=== PATIENT | male | born 1985 | race Caucasian/White ===

== ENCOUNTER 2018-10-14 05:37 | Inpatient (IN) ==
[~2018-10-14 05:37] MED LIST: LIDOCAINE W/ SODIUM BICARB 0.5 ML SYR ONE; Lactated Ringers 1,000 ML PRIMARY IV ONE
[2018-10-14] MEDS ORDERED: Sodium Chloride 0.9% 250 ML ONE (05:42)
[2018-10-14] MEDS ORDERED: Vancomycin Inj 1gm vial ONE ×2 (05:42→07:19)
[2018-10-14] MEDS ORDERED: ceFAZolin Inj 2gm (Premix) 2 GM/50 ML BAG IV ONE ×2 (05:42→06:00)
[2018-10-14] MEDS ORDERED: Lactated Ringers 1,000 ML PRIMARY IV ONE ×2 (06:00→15:58)
[2018-10-14] MEDS ORDERED: LIDOCAINE W/ SODIUM BICARB 0.5 ML SYR SUBD ONE (06:00)
[2018-10-14] MEDS ORDERED: Nasal Sanitizer POPSWAB ampule 3 AMP (Nozin) PREOP DOSE ENOS SCH (06:00)
[2018-10-14] MEDS ORDERED: SCOPOLAMINE HYDROBROMIDE 1.5 MG - 1 EACH PATCH TRANSDERM ONE (06:45)
[2018-10-14] MEDS ORDERED: ONDANSETRON 4 MG/2 ML VIAL ONE (06:45)
[2018-10-14] MEDS ORDERED: DEXAMETHASONE PF 10 MG/1 ML VIAL ONE (06:46)
[2018-10-14] MEDS ORDERED: OXYMETAZOLINE 0.05% 15 ML NASAL SPRAY ONE (06:58)
[2018-10-14] MEDS ORDERED: fentaNYL Inj 250 MCG/5 ML VIAL ONE ×2 (07:13→10:07)
[2018-10-14] MEDS ORDERED: KETAMINE HCL 100 MG/2 ML SYRINGE IV ONE ×2 (07:13→09:42)
[2018-10-14] MEDS ORDERED: REMIFENTANIL 1 MG/1 ML IV ONE ×5 (07:13→13:56)
[2018-10-14] MEDS ORDERED: MIDAZOLAM 5 MG/1 ML ONE (07:13)
[2018-10-14] MEDS ORDERED: REMIFENTANIL HCL 2 MG VIAL IV ONE ×6 (07:14→15:01)
[2018-10-14] MEDS ORDERED: Gentamicin Inj 40 MG/ML VIAL ONE (07:18)
[2018-10-14] MEDS ORDERED: Propofol 1,000 MG/100 ML VIAL IV ONE ×5 (07:19→13:58)
[2018-10-14] MEDS ORDERED: BACITRACIN 50,000 UNIT VIAL IRRIG ONE ×4 (07:20→12:58)
[2018-10-14] MEDS ORDERED: BUPIVACAINE 0.25% W/ EPI - 10 ML VIAL ONE (07:21)
[2018-10-14] MEDS ORDERED: Sodium Chloride 0.9% vial 20 ML ONE (07:21)
[2018-10-14] MEDS ORDERED: PROPOFOL 10 MG/1 ML (200 MG/20 ML) VIAL IV ONE ×3 (07:22→14:46)
[2018-10-14] MEDS ORDERED: LIDOCAINE MPF 2% - 5 ML (20 MG/1 ML) ONE (07:32)
[2018-10-14] MEDS ORDERED: LIDOCAINE HCL 2 % 10 ML JELLY URO-JECT TOPICAL ONE ×2 (07:46→08:47)
[2018-10-14] MEDS ORDERED: ALBUTEROL SULFATE 8.5 GM HFA INHALER INH ONE (08:14)
[2018-10-14] MEDS ORDERED: BUPivacaine Liposome/PF (Exparel) Inj 20ml vial INFIL ONE (09:46)
[2018-10-14] MEDS ORDERED: Sodium Chloride 0.9% vial 10 ML ONE ×4 (11:20→12:58)
[2018-10-14] MEDS ORDERED: ceFAZolin 1 GM VIAL ONE (12:34)
[2018-10-14] MEDS ORDERED: BUPivacaine Inj 0.25% PF - 10ml vial ONE (14:28)
[2018-10-14] MEDS ORDERED: HYDROmorphone 2 MG/1 ML ONE ×3 (14:53→16:42)
[2018-10-14] MEDS ORDERED: HYDROmorphone 2 MG/1 ML IVP ONE ×2 (16:00→16:19)
[2018-10-14] MEDS ORDERED: ONDANSETRON 4 MG/2 ML VIAL IVP PRN (16:05)
[2018-10-14] MEDS ORDERED: Prochlorperazine Edisylate Inj 10mg/2ml vial IVP PRN ×2 (16:05→17:03)
[2018-10-14] MEDS ORDERED: LIDOCAINE W/ SODIUM BICARB 0.5 ML SYR SUBD PRN (16:05)
[2018-10-14] MEDS ORDERED: DIAZEPAM 10 MG/2 ML (5 MG/1 ML) CARPUJECT IVP PRN (16:07)
--- NOTE | 2018-10-14 16:10 | GEN.OPNOTE ---
Operative Note Surgery Date: 10/14/18 Preoperative Diagnosis: 1. Chronic low back pain. 2. Lumbar degenerative disc disease L2-3 and L3-4. 3. Adjacent level facet arthropathy L3-4. 4. Status post L3 vertebral body fracture with subsequent kyphoplasty. 5. Status post L4-S1 fusion 2013. 6. Status post SI join fusion 2013. 7. Status post Chiari decompression in 2012. Postoperative Diagnosis: 1. Chronic low back pain. 2. Lumbar degenerative disc disease L2-3 and L3-4. 3. Adjacent level facet arthropathy L3-4. 4. Left L3-4 lateral recess stenosis. 5. Status post L3 vertebral body fracture with subsequent kyphoplasty. 6. Status post L4-S1 fusion 2013. 7. Status post SI join fusion 2013. 8. Status post Chiari decompression in 2012. Procedure: 1.) L4-S1 hardware removal (removal of all set screws and rods, crosslink, and S1 pedicle screws. (CPT code: 27261). 2.) Left L3-4 hemilaminotomy, medial facetectomy, foraminotomy for decompression of lateral recess stenosis resulting from bony arthopathy/hypertrophy and ligamentous hypertrophy. (CPT code: 89203). 3.) Arthrodesis, combined posterolateral and posterior interbody technique, L2-3. (CPT code: 03331). 4.) Arthrodesis, combined posterolateral and posterior interbody technique, L3-4. (CPT code: 83419). 5.) Insertion of a 10 mm x11 mm x [address] titanium lumbar interbody cage filled in the center with DBM putty (allograft) into the L2-3 interspace. (CPT code: 21833). 6.) Insertion of a 11 mm x 11 mm x [address] titanium lumbar interbody cage filled in the center with DBM putty (allograft) into the L3-4 interspace. (CPT code: 56010). 7.) Redo p osterolateral arthrodesis, L4-5. (CPT code: 79551). 8.) Posterior segmental instrumentation, L2-L5 using [employer] Alfred 3 pedicle screw and abdifatah system (reusing Aesculap L4 and L5 pedicle screws). (CPT code: 58933). 9.) Use of autograft, harvested from the same incision, cleaned of soft tissue and morselized for interbody and posterolateral fusion. (CPT code: 40977). 10.) Use of 20 cc My Vitoss Bimodal synthetic bone product (allograft), 30 cc [place] BIO DBM Putty Plus cancellous (allograft), and 90 cc cancellous chips (allograft) for interbody and posterolateral fusion. (CPT code: 91024). 11.) Use of [employer] computer assisted neuronavigation system for the cannulization of the L2 pedicles bilaterally and the L3 pedicle on the left, for the subsequent placement of the pedicles screws. (CPT code: 58973). 12.) Use of intra- operative fluoroscopy for localization of correct surgical levels, for final confirmation of the placement of the intervertebral cages and final confirmation of the placement of posterolateral hardware elements. 13.) Use of intra- operative neuromonitoring including free running EMG's, triggered EMG's, and SSEP's. Surgeon: Winston Naik MD Mechanical Planner: GALEN Serna Anesthesia Provider: Loco Williamson CRNA Anesthesia Type: General Estimated Blood Loss (mL): 600 Fluids: See anesthesia record Pathology: None Indications: Mr. Hilliard is a 33 year old gentleman who is a patient of mine who underwent a suboccipital craniectomy in 2012 and an L4-S1 fusion in 2013. He underwent a right SI joint fusion in [place] in 2014. He had a lumbar kyphoplasty p erformed by Dr. Youssef in 2015 for an L3 compression fracture. Mr. Hilliard presented in my [facility] on 08/09/18. He complained of low back pain radiating into his right buttocks, rating is pain as a 7/10 in intensity. He had an MRI scan of his lumbar spine that demonstrated his L4-S1 fusion as well as a kyphoplasty of the L3 vertebral body. The study demonstrated adjacent level degenerative disc disease and facet arthropathy at the L3-4 level. He underwent bilateral L3-4 facet blocks receiving 5 days of relief from the injections. We discussed referring him for facet rhizotomies but also discussed extending his fusion and he wished to proceed with the surgical procedure. He presents for his surgery today, a L4-S1 hardware removal; L2-3, L3-4 transforaminal lumbar interbody fusion and L2-4 posterolateral instrumented fusion. Findings: 1.) Facet arthropathy and hypertrophy L2-3 and L3-4. 2.) Left L2-3 subligamentous herniated nucleus propulsis. 3.) Left L3-4 lateral recess stenosis. 4.) Solid L4-S1 fusion. Complications: None Operative Summary: Mr. Hilliard was met in the preoperative area. His surgical history and physical was reviewed. We reviewed the procedure to be performed and we were in agreement on the procedure and this matched what was written on the patient's consent form. Any questions Mr. Hilliard or his mother had were answered before Mr. Hilliard was brought back to the operating room suite. Mr. Hilliard was brought back to the operating room suite and put under general anesthesia and intubated by the anesthesia staff. He had a Singh catheter placed in his bladder for the procedure. He had pneumatic compression hose placed on his lower legs bilaterally. Mr. Hilliard was carefully rolled over onto the Johny surgical table with his arms gently positioned upwards with his shoulders abducted less than 90. His arms were well-padded with foam padding on top of the padding the surgical armboards. The region of his chest and axilla was checked bilaterally to make sure that there were no pressure points over the region of the brachial plexus bilaterally. His nipples were checked be below the chest pad of the Johny table no pressure points. All bony prominences were well padded. His Singh catheter was checked be free from kinks. His pneumatic compression hose was attached and pneumatic compression device. The C-arm fluoroscopy unit was used to help localize the skin incision needed for the approach to the intended surgical levels. The intended skin incision was marked with a skin marker was several crosshatches incorporating his previous surgical incision into the new intended incision. Mr. Hilliard was prepped and draped in the usual and standard fashion. He was given 2 g of Ancef and a gram of vancomycin IV for perioperative antibiosis. He was given 10 mg of Decadron IV. A standard surgical timeout was performed identifying the correct patient, the correct procedure, and the correct equipment being available for the procedure. The intended skin incision was injected subcutaneously with quarter percent Marcaine with 1 in 200,000 epinephrine. 20 mL of local anesthetic was used. The skin incision was then incised with a 10 blade scalpel and all dermal and superficial bleeding points being controlled bipolar cautery. The dissection was continued through these copious subcutaneous tissue down to the lumbar fascia. The lowest spinous process above his previous surgical area was palpated and felt to likely be the L3 spinous process and subperiosteal dissection was performed down the spinous process and out over the lamina bilaterally. A Artesian instrument was placed over what was believed to be the level of the L3 pedicles and this was confirmed with lateral fluoroscopy. Continued subperiosteal dissection was performed in the rostral aspect of the surgical dissection and the normal tissue planes exposing the inferior aspect of the L1 lamina the L2 lamina and the L3 lamina and the L1-2, L2-3, and L3-4 facet joints bilaterally and the dissection was taken out laterally over the L2 and L3 transverse processes bilaterally. More caudally and the scar tissue from the patient's previous surgery the dissection was taken laterally earlier as the dissection proceeded ventrally to avoid entering into the previously decompressed spinal canal at the previous surgical levels. This identified the L4-S1 hardware elements bilaterally as well as cross-link between the L4 and L5 pedicle screws. Soft tissue was cleaned over the posterior aspect of the spine in the rostral aspect of the surgical dissection the normal tissue planes using a large straight curette and a large Leksell rongeur. The hardware from the patient's previous L4 to S1 instrumented fusion was dissected out with Bovie cautery as well as with the large Leksell rongeur. The cross-link was removed between the rods between the L4 and L5 pedicle screws. The set screws of the L4, L5, and S1 pedicle screws were then removed from the Aesculap instrumentation construct. All of the pedicle screws now independent were gently tugged on with a large Leksell rongeur and there was noted to be no movement between the L4-5 and L5-S1 levels. The S1 pedicle screws were subsequently removed. The L4 and L5 pedicle screws however left in place to provide two points of the purchase below the new intended extension of fusion. The soft tissue underneath and lateral to where the rods had been was then dissected with Bovie cautery and a large Leksell rongeur. There was bone product encountered from the patient's previous surgery that had solidified into a solid gel but not into solid bone. This product was all completely removed. With this product removed however the bone underneath was completely dissected out and there was evidence of solid fusion across the L4-5 and L5-S1 facet joints bilaterally. The L4 and L5 transverse processes were dissected out bilaterally. Extensive decortication was then performed of the L2 L3 L4 and L5 transverse processes bilaterally as well as the lateral aspect of the L1-2 facet joint and the lateral and posterior aspects of the L2-3 facet joint after the posterior aspect of this quite hypertrophied facet joint was removed with a large Leksell rongeur. The lateral and posterior aspect of the L3-4 facet joint was decorticated bilaterally. The L4 and L5 transverse processes were decorticated bilaterally as well as the L4-5 posterior lateral fusion mass bilaterally. All decortication was performed with the Affine Brett high-speed drill with a matchstick bit. The bone dust created was collected and saved to be used as autograft during the fusion portion of the procedure. The [employer] neuro navigation reference arc was securely attached to the L1 spinous process and a spin was performed with the Pumant 3-D fluoroscopy unit. The [employer] neuro navigation pedicle finder was then used to cannulate the L2 pedicles bilaterally and the L3 pedicle on the left. A 8 mm diameter Jamshidi needle was inserted into the L2 pedicle on the left in 20 mL of vertebral body bone marrow was collected and saved to saturate the 20 mL of [employer] Vitoss synthetic bone product intended for the posterior lateral fusion. The internal aspect of the pedicles were palpated with a small ball-tip instrument. The pedicle screws were then all tapped with the My Daphney 3 4.5 mm pedicle tap. The internal aspects of the pedicles were again palpated with a small ball-tip instrument. The pedicle screws were then placed. 5.5 x 55 mm pedicle screws were placed into the L2 pedicles bilaterally and a 5.5 x 40 mm pedicle screw was placed into the L3 pedicle on the left. The pedicle screws all obtained good purchase in the pedicle and vertebral body bone. The pedicle screws were then interrogated with triggered EMGs and all demonstrated sufficiently high impedance indicating that they were not in close proximity to nerve structures. Another spin was performed with the 3-D fluoroscopy unit providing further confirmation of the pedicle screws were indeed contained within the confines of the pedicles at each level bilaterally and either bicortical or nearly bicortical as intended. A hemilaminotomy, medial facetectomy, and foraminotomy was then performed at the L3-4 level on the left. Bony arthropathy and ligamentous hypertrophy was found to be producing significant lateral recess stenosis on the left at L3-4 which was completely decompressed using the high-speed drill with a matchstick bit as well as with various size Kerrison punches. This stenosis was not anticipated based on the preoperative images. A hemilaminotomy, medial facetectomy, and foraminotomy was performed at the L2-3 level on the left to expose the disc space for the intended interbody fusion at this level. A Wadsworth 4 instrument was used to carefully dissect the soft tissue adjacent to the takeoff of the L3 nerve root at the L2-3 level and the L4 nerve root at the L3-4 level. This allowed identification of the L2-3 and L3-4 disc space proper. A Angelina'Aristides nerve root retractor was used to retract the thecal sac and transversing nerve roots at both levels. Epidural veins over the disc spaces were coagulated with bipolar cautery and cut with microscissors. At the L2-3 level there was noted to be a prominent subligamentous disc herniation. The L2- 3 and L3-4 disc spaces were incised with a 15 blade scalpel and disc material was removed with a pituitary rongeur. Additional disc and cartilaginous endplate was loosened in each level using the K2 disc space monty in 1 mm increments starting with a 7 mm disc space shaver both levels advancing to a 9 mm disc space shaver at the L2-3 level and a 10 mm disc space shaver at the L3-4 level. The disc material loosened was removed with a pituitary rongeur. The large Danna down-biting curet was then used to loosen disc laterally in both the L2-3 and L3-4 disc spaces with the disc fragments removed with a pituitary rongeur. The large Danna down-biting curet was then used to extensively decorticate the L2 and L3 endplates in the L2-3 interspace and the L3 and L4 endplates in the L3-4 interspace. All fingers spaces were irrigated with bacitracin irrigation. Approximately 3 mL of [place] BIO DBM Putty Plus cancellus (allograft) was placed into each of the interspaces and moved anteriorly with a bone tamp. Each interspace was sized for the appropriate size lumbar interbody cage. A 10 mm x 11 mm x [address] titanium lumbar interbody cage was selected for the L2-3 level. The cage was filled in the center with [place] BIO DBM Putty Plus cancellus (allograft) and inserted into the L2-3 interspace with the supervisor tree fruit and nut farming. The cage was gently countersunk with a bone tamp and mallet. The cage obtained good purchase between the L2 and L3 endplates. The final position of the cage was confirmed with lateral fluoroscopy. A 11 mm x 11 mm x [address] titanium lumbar interbody cage was selected for the L3-4 level. The cage was filled in the center with My BIO DBM Putty Plus cancellus (allograft) and inserted into the L3-4 interspace with the supervisor tree fruit and nut farming. The cage was gently countersunk with a bone tamp and mallet. The cage obtained good purchase between the L3 and L4 endplates. The final position of the cage was confirmed with lateral fluoroscopy. Attention was turned back to the instrumentation portion of the procedure. A template was used to measure the length the rods needed to span from the L2 pedicle screws to the L5 pedicle screws bilaterally. [place] Alfred 35.5 mm rods were cut to the appropriate length and then bent into the appropriate lumbar lordosis. The rods were then placed into the tulips of the pedicle screws and then My set screws were placed over the rods in the tulips of the L2 pedicle screws bilaterally and the L3 pedicle screw on the left, and Aesculap set screws were placed over the rods in the tulips of the L4 and L5 Aesculap pedicle screws. The set screws were first tightened down hand tight and then the My set screws were tightened down to their final tightness using the torque counter torque device while the Aesculap set screws were tightened down squeaky tight. The surgical site was irrigated with hydrogen peroxide. The surgical site was then pulse lavaged with 3 L of vancomycin/bacitracin/gentamicin solution. The paraspinous musculature was retracted and 10 mL of My corwin Wilson bimodal synthetic bone product soaked in 10 mL of vertebral body bone marrow was then placed medial to the hardware construct on the right and lateral to the hardware construct on the left from the L2 transverse process to the L5 transverse process. 90 mL of cancellus bone chips was split with half of this product being placed both medial and lateral to the hardware construct on the right from the L2 transverse process to the L5 transverse process and placed lateral to the hardware construct on the left from the L2 transverse process to the L5 transverse process. The remaining approximately 23 mL of My BIO DBM Putty Plus cancellous was then split with this product being placed medial and lateral to the hardware construct on the right and lateral to the hardware construct on the left to provide extra bone product for fusion and to hold bone chips in place. The hemilaminotomy/medial facetectomy sites on the left at L2-3 and L3-4-were inspected for any bone chips. Any identified were removed. The hemilaminotomy/medial facetectomy sites were irrigated with a small amount of irrigant which was subsequently removed with suction. FloSeal hemostatic agent was placed over all exposed dural elements. Pieces of Gelfoam were placed over the exposed portions of the spinal canal. A medium Hemovac drain was placed into the surgical site. The closure portion of the procedure was begun. The deep scar tissue and the lower half of the bustillo rgical dissection was closed with #1 Vicryl suture. The lumbar fascia was then closed tightly throughout the length of the incision with #1 Vicryl suture in a interrupted fashion. The surgical site was again irrigated with bacitracin irrigation. The deep subcutaneous tissue and fascia was reapproximated with 2-0 Vicryl suture in a interrupted fashion. Exoperel was then injected all around the surgical site in the subcutaneous tissue. The dermis and superficial subcutaneous tissue was reapproximated with 2-0 Vicryl suture in an inverted interrupted fashion. The Ioban drape was pulled back from the skin edges. Final layer closure was performed with surgical stainless steel rogelio. The incision was cleansed with bacitracin soaked sponge and dried with a sterile dry sponge. The incision was then dressed. The surgical drain was secured with suture. The drain site was dressed. All surgical drapes removed from Mr. Hilliard. He was carefully rolled over onto the PACU stretcher. He was awoken and a by the anesthesia staff. He was taken the recovery room stable condition. All surgical counts were reported as correct by the scrub and circulating personnel. A physician's administrative office assistant, Mrs. Jeniffer Martinez PA-C, assisted with the procedure including the exposure and closure portions of the procedure. She provided irrigation and suctioning throughout the procedure. She skillfully and carefully retracted the nerve structures during the more critical portions of the procedure such as the discectomy and intervertebral cage placement portions of the procedure.
[2018-10-14] MEDS ORDERED: Lactated Ringers 1,000 ML PRIMARY IV SCH (16:15)
--- NOTE | 2018-10-14 16:15 | CRNA.PROGR ---
Anesthesia Time - Procedure/Recovery Time Start Date: 10/14/18 End Date: 10/14/18 Anesthesia : Time In: 07:29 Anesthesia : Time Out: 16:14 Anesthesia : Total Time: 525 - Total Anesthesia Time Total Anesthesia Time (minutes): 525 - Other Weight: 107.501 kg Height: 5 ft 10 in Body Mass Index (BMI): 34.0 Physical Status: P2 Anesthesia Type: General Anesthesia : ET (TIVA)
--- NOTE | 2018-10-14 16:16 | CRNA.PROGR ---
Anesthesia Recovery Phase I - Post Anesthesia Evaluation Patient's Condition on Arrival in Phase I: Stable Pain Level: 9 (treated with dilaudid and valium with great results)
[2018-10-14] MEDS: HYDROmorphone 2 MG/1 ML IVP PRN ×2 (16:36→16:38)
[2018-10-14] MEDS ORDERED: DIAZEPAM 10 MG/2 ML (5 MG/1 ML) CARPUJECT IVP ONE (16:43)
[2018-10-14] MEDS ORDERED: PROMETHAZINE 25 MG/1 ML VIAL IM PRN (17:03)
[2018-10-14] MEDS ORDERED: oxyCODONE-ACETAMINOPHEN 5-325 TAB PO PRN (17:03)
[2018-10-14] MEDS ORDERED: Ondansetron ODT Tab 4 MG TAB PO PRN (17:03)
[2018-10-14] MEDS ORDERED: MORPHINE SULFATE 2 MG/1 ML IVP PRN (17:03)
[2018-10-14] MEDS ORDERED: Fleet Enema 133ml RECTAL PRN (17:03)
[2018-10-14] MEDS ORDERED: Vancomycin-PHA to Dose IV SCH (17:03)
[2018-10-14] MEDS ORDERED: MAGNESIUM CITRATE 296 ML SOLUTION PO PRN (17:03)
[2018-10-14] MEDS ORDERED: oxyCODONE/APAP 7.5/325 Tab 1 TAB TAB PO PRN (17:03)
[2018-10-14] MEDS: ceFAZolin Inj 1 GM in Sodium Chloride 0.9% 100 ML IV SCH (17:40)
[2018-10-14] MEDS: oxyCODONE/APAP 10/325 Tab 1 EACH TAB PO PRN ×2 (17:41→21:12)
--- NOTE | 2018-10-14 17:45 | NEURO.PROG ---
Subjective Post Op Day: 0 Pain Management: PO Singh Catheter: Yes Diet: Controlled Carbohydrate Ambulating: No Additional Details: Awake and alert in floor room. Back "sore". Denies leg symptoms. Moving all extremities. Good knee flexion/dorsiflexion/plantarflexion bilaterally. PLAN; 1.) Continue post-operative antibiotics. 2.) Continue post-operative pain control. 3.) Advance diet. 4.) Mobilize. Objective : Data - Vital Signs Vital Signs and I&O: Vital Signs - Last Taken Temperature 96.6 F L 10/14/18 17:16 Pulse Rate 53 L 10/14/18 17:16 Respiratory Rate 12 10/14/18 17:16 Blood Pressure 123/76 10/14/18 07:07 Pulse Ox 98 10/14/18 17:16 Intake and Output (24hr x 4 totals) 10/12/18 10/13/18 10/14/18 10/15/18 05:59 05:59 05:59 05:59 Intake Total 2900 / 2900 Output Total 3600 / 3600 Balance -700 / -700
[2018-10-14] MEDS: ONDANSETRON 4 MG/2 ML VIAL IVP PRN (19:50)
[2018-10-14] MEDS: DIAZEPAM 5 MG TABLET PO PRN (22:43)
[2018-10-15] MEDS: ceFAZolin Inj 1 GM in Sodium Chloride 0.9% 100 ML IV SCH (01:25)
[2018-10-15] MEDS: oxyCODONE/APAP 10/325 Tab 1 EACH TAB PO PRN ×6 (01:37→21:08)
[2018-10-15] MEDS: DIAZEPAM 5 MG TABLET PO PRN ×3 (04:46→17:02)
[2018-10-15 05:19] LABS: BASOPHILS # (AUTO) 0.01 10*3/UL; BASOPHILS % (AUTO) 0.1 % (0-1); EOSINOPHILS # (AUTO) 0 10*3/UL; EOSINOPHILS % (AUTO) 0 % (0-8); Hematocrit [HCT] 34.9 % (42.0-52.0); Hemoglobin [HGB] 11.8 g/dL (14.0-18.0); LYMPHOCYTES # (AUTO) 1.35 10*3/uL; MEAN CORPUSCULAR HEMOGLOBIN 31.3 PG (27-31); MEAN CORPUSCULAR HGB CONC 33.8 g/dL (33-37); MEAN CORPUSCULAR VOLUME 92.6 FL (80-90); MEAN PLATELET VOLUME 10.7 FL (7.4-12.2); MONOCYTES # (AUTO) 1.06 10*3/UL (0.3-0.8); MONOCYTES % (AUTO) 9.7 % (5-15); NEUTROPHILS # (AUTO) 8.52 10*3/UL; NEUTROPHILS % (AUTO) 77.7 % (50-80); RED BLOOD COUNT 3.77 10^6/uL (4.70-6.10)
[2018-10-15 05:36] LABS: BLOOD UREA NITROGEN 10 mg/dL (7-22); BUN/CREATININE RATIO 16.66 (6-20)
[2018-10-15 05:39] LABS: PLATELET MORPHOLOGY COMMENT NORMAL MORPHOLOGY (NORM); RBC MORPHOLOGY COMMENT NORMAL MORPHOLOGY (NORM); WBC MORPHOLOGY COMMENT NORMAL MORPHOLOGY (NORM)
--- NOTE | 2018-10-15 06:08 | NEURO.PROG ---
Subjective Post Op Day: 1 Pain Management: PO Singh Catheter: No Diet: Constant Carbohydrate Ambulating: Yes Additional Details: Awake and alert. Following commands. Moving all extremities well. Drain output 145/190. PLAN: 1.) Continue post-operative antibiotics. 2.) Continue post-operative pain control. 3.) Continue to mobilize. Objective : Data - Labs CBC and BMP: 10/15/18 04:50 10/15/18 04:50 - Vital Signs Vital Signs and I&O: Vital Signs - Last Taken Temperature 98.3 F 10/15/18 05:00 Pulse Rate 74 10/15/18 05:00 Respiratory Rate 16 10/15/18 05:00 Blood Pressure 122/70 10/15/18 05:00 Pulse Ox 99 10/15/18 05:04 Intake and Output (24hr x 4 totals) 10/13/18 10/14/18 10/15/18 10/16/18 05:59 05:59 05:59 05:59 Intake Total 3800 / 3800 Output Total 4785 / 4785 Balance -985 / -985
[2018-10-15] MEDS: OMEPRAZOLE 40 MG CAPSULE PO SCH (06:42)
[2018-10-15] MEDS: DOCUSATE 100 MG CAPSULE PO PRN (06:42)
[2018-10-15] MEDS: PANTOPRAZOLE 40 MG TABLET PO SCH (06:52)
[2018-10-15] MEDS: CALCIUM CARBONATE 500 MG (TUMS) CHEWABLE TABLET PO SCH (09:03)
[2018-10-15] MEDS: Multivitamin Tab 1 TAB PO SCH (09:03)
[2018-10-15] MEDS: CHOLECALCIFEROL 1000 IU TABLET PO SCH (09:03)
[2018-10-15] MEDS: CYANOCOBALAMIN (VITAMIN B-12) 1,000 MCG TABLET.ER PO SCH (09:03)
[2018-10-15] MEDS: MAGNESIUM 400 MG/5 ML - 30 ML (MILK OF MAGNESIA) PO PRN (12:55)
--- NOTE | 2018-10-15 14:30 | PTI REPORT ---
Thank you for the referral of Mateo Hilliard. He was seen on 10/15/18 for an inpatient evaluation status post lumbar fusion. SUBJECTIVE: The patient is a 33-year-old male who underwent a lumbar fusion yesterday. The patient states that he has had 10 surgeries in the last several years and he pretty much understands what his expectations are as an inpatient and what is coming next. The patient is very pleasant and easy to work with. The patient does live with his at home. OT will be helping him with adaptive equipment this morning. PAST MEDICAL HISTORY: Past medical history can be found in the patient's medical record. OBJECTIVE FINDINGS: General observations: The patient was alert and oriented x3. Bed mobility: The patient was able to come from supine to side lying to sitting independently. He was able to complete log rolling and understood his precautions. Transfers: The patient was able to transfer from sit to stand independently and understood his precautions. Ambulation: The patient was able to ambulate with use of a walker up to 1,000 feet independently. He was able to ascend and descend 12 stairs with stand by assist of one due to his pain medications. ASSESSMENT: The overall plan on the nursing floor is to keep the patient at least through tomorrow. He did have his new brace and understood how to use it and felt good with it on. The patient has a good prognosis. Problem List: Decreased functional mobility Increased pain Short-Term Goals: To be met by discharge from inpatient: Patient will be able to transfer from bed to stand independently and safely. Patient will be able to ambulate 300 feet independently without an assistive device. Patient will be able to ascend and descend one flight of stairs independently and safely. Long-Term Goals: To be met following discharge from inpatient: Patient will return home, independent with all ADLs and functional transfers. TREATMENT PLAN: Patient will be seen B.I.D during the week and one time per day over the weekend as an inpatient to address the above goals and objectives. INITIAL TREATMENT: Treatment today consisted of the initial evaluation only. GI
--- NOTE | 2018-10-15 14:39 | OTI REPORT ---
Thank you for the referral of Mateo Hilliard. He was seen on 10/15/18 for an occupational therapy inpatient evaluation status post lumbar fusion. SUBJECTIVE: The patient is a 33-year-old male who reports quite a medical history with his back, Chiari malformation, stomach surgeries, and leg fractures on the left side. The patient reports he has been on disability for a few years now. He has had back pain for quite a few years as well. He was independent with dressing himself and doing simple ADLs. He does have a commode in his apartment. He has five stairs leading up to his apartment. He does have a shower chair. PAST MEDICAL HISTORY: Past medical history can be found in the patient's medical record. OBJECTIVE FINDINGS: General observations: The patient was educated in his back precautions. Activities of daily living: Prior to this admission the patient had not used adaptive devices and had his help him most of the time. He states he would like to be more independent as possible. Today he was educated in the use of a medicaid billing specialist, sock aide, bath sponge, and long handled shoe horn, which he states will all be beneficial for him at home. He needed min assist with use of the sock aide. He was independent with the medicaid billing specialist. The patient was also issued a high rise toilet seat as he does have a low toilet at home. Transfers: The patient requires stand by assist for functional transfers. He demonstrated good log rolls. Pain: The patient rates his pain as a 7/10 on the verbal analog scale (0=no pain, 10=worst pain). His pain levels without pain medications continue to increase, but with medication they are tolerable. ASSESSMENT: The patient would benefit from at least one more session to go over adaptive devices and adaptive equipment. He would benefit from therapy to improve his ability to complete lower extremity dressing. Short-Term Goals: To be met by discharge from inpatient: Patient will be able to dress lower extremities with medicaid billing specialist and sock aide independently. Patient will be able to complete all functional transfers independently and safely. Patient will demonstrate independence with all back precautions while completing functional transfers and ADLs. Long-Term Goals: To be met following discharge from inpatient: Patient will demonstrate modified independence with adaptive devices. TREATMENT PLAN: Patient will be seen one more time as an inpatient to address adaptive devices and equipment. INITIAL TREATMENT: Treatment today consisted of the initial evaluation followed by education and instruction on adaptive devices. GI
--- NOTE | 2018-10-15 16:45 | PT.PROG ---
Progress Note Progress Note: S. Patient stated that he is having some pain this afternoon, however agreed to go for a walk. O. Patient ambulated 200 feet around the nurses station and back to his room where he was left in his chair with his call light. A. Patient tolerated ambulation well and has met all goals at this time. P. Continue POC.
[2018-10-15] MEDS: BISACODYL 5 MG TABLET PO PRN (17:05)
[2018-10-16] MEDS: oxyCODONE/APAP 10/325 Tab 1 EACH TAB PO PRN ×4 (00:51→13:00)
[2018-10-16] MEDS: DOCUSATE 100 MG CAPSULE PO PRN (04:56)
--- NOTE | 2018-10-16 06:14 | NEURO.PROG ---
Subjective Post Op Day: 2 Pain Management: PO Singh Catheter: No Flatus: Yes Diet: Regular Ambulating: Yes Additional Details: Mr Hilliard is awake and alert. He complains only of low back pain, denying peripheral symptoms including the left buttock pain reported postoperatively. He has good strength bilaterally with dorsi and plantar flexion and bilateral leg strength. He ambulated with physical therapy passing all milestones. Vital signs are stable. He is passing flatus but has not had a bowel movement. He is on stool softeners. His incision is dry and intact. He had 190 ml of serosanguinous drainage over 12 hours. His pain is controlled with po pain med, oxycodone 10/325. He feels ready for discharge home. Objective : Data - Labs CBC and BMP: 10/15/18 04:50 10/15/18 04:50 - Vital Signs Vital Signs and I&O: Vital Signs - Last Taken Temperature 98.3 F 10/16/18 05:00 Pulse Rate 97 10/16/18 05:00 Respiratory Rate 18 10/16/18 05:00 Blood Pressure 131/77 10/16/18 05:00 Pulse Ox 96 10/16/18 05:00 Intake and Output (24hr x 4 totals) 10/14/18 10/15/18 10/16/18 10/17/18 05:59 05:59 05:59 05:59 Intake Total 3800 / 3800 1668 / 1668 Output Total 4785 / 4785 420 / 420 Balance -985 / -985 1248 / 1248
[2018-10-16] MEDS: PANTOPRAZOLE 40 MG TABLET PO SCH (06:42)
[2018-10-16] MEDS: OMEPRAZOLE 40 MG CAPSULE PO SCH (06:47)
[2018-10-16] MEDS: DIAZEPAM 5 MG TABLET PO PRN ×2 (06:47→14:55)
[2018-10-16] MEDS ORDERED: tiZANidine Tab 4 MG TAB PO PRN (07:29)
[2018-10-16] MEDS: CALCIUM CARBONATE 500 MG (TUMS) CHEWABLE TABLET PO SCH (08:07)
[2018-10-16] MEDS: Multivitamin Tab 1 TAB PO SCH (08:08)
[2018-10-16] MEDS: CHOLECALCIFEROL 1000 IU TABLET PO SCH (08:08)
[2018-10-16] MEDS: BISACODYL 5 MG TABLET PO PRN (08:08)
[2018-10-16] MEDS: CYANOCOBALAMIN (VITAMIN B-12) 1,000 MCG TABLET.ER PO SCH (09:07)
--- NOTE | 2018-10-16 10:36 | OT.PROG ---
Progress Note Progress Note: Occupational Therapy: S: pt stated that he was feeing fine. O: tx consisted of equipment education for functional and ADL performance when pt returns home. pt was educated on use of long handled shoe horn for donning shoes, long handled bath sponge for washing LEs and back, university controller education for donning LE and reaching items for dressing while seated and use of sock aide to jacklyn socks without bending. pt was educated on safety while using all equipment. A: pt is progressing well and is improving in functional abilities and ADL performance. P: continue POC
[2018-10-16] MEDS: ONDANSETRON 4 MG/2 ML VIAL IVP PRN (11:15)
--- NOTE | 2018-10-16 11:29 | PT.PROG ---
Progress Note Progress Note: S: pt reports he feels like "he is going to give up" due to pain and multiple surgeries. pt pain 05/17. O: pt on IV antibiotics and pt instructed in supine to sit transfer SBA x1, instruction in seated marches x 20 reps, seated LAQs x 20 reps, ankle pumps, sit to stands w CGA x 1 with standard walker x 8 reps, standing SLS 20 seconds each LE CGA x 1 for safety, standing marches x 20 reps, standing heel toe raises x 20 reps. pt felt nauseous and was returned to bed SBA . pt left in care of nursing staff and bed alarm activated upon therapy departure. A: pt tolerated therapy fair to poor today due to nausea and pain. mobility is doing well at this time. P: cont per POC
[2018-10-16 11:41] VITALS: BP 130/72; RESP 16; TEMP 97.3; O2SAT 98
[2018-10-16] MEDS: MAGNESIUM 400 MG/5 ML - 30 ML (MILK OF MAGNESIA) PO PRN (13:04)
--- NOTE | 2018-10-17 09:09 | NEURO.DC ---
Discharge Summary Admit Date: 10/14/18 Discharge Date: 10/16/18 Admitting Diagnosis: Chronic low back pain with lumbar degenerative disc disease Seconadry Diagnosis: S/P prior lumbar spine surgery Discharge Diagnosis: Lumbar Spinal Fusion. See op note for full procedure Primary Surgery and Date: See Op Note 10/14/2018 Hospital Course: Mr Hilliard was admitted to [facility] to undergo the above noted procedure. He was taken to the recovery room in stable condition and progressed to Med/Surg. His post op course was uneventful. He had good symptom and pain relief. His incision was dry and intact. At the time of discharge he was ambulating without difficulty and had passed physical therapy milestones. He was given post op instructions, to include incision care and activity. He was given a followup appointment to see Dr. Naik in clinic in [place] on October 25, 2018. Follow-Up: Winston Naik [STAFF PHYSICIAN] - 10/25/18 10:30 am (In [place] [facility] with Dr. Naik) NONE,NONE [Primary Care Provider] - As Needed Discharge Instructions Provided to Patient / Family: Oxycodone/Acetaminophen (By mouth), Lumbar Spinal Fusion (GEN) Exam - Vitals Vital Signs: Vital Signs Temperature 97.3 F Temperature Source Temporal Artery Scan Pulse Rate [Pulse Oximeter] 90 Pulse Rate 74 Respiratory Rate 16 Blood Pressure [Right Arm] 130/72 Blood Pressure [Left Arm] 131/77 Blood Pressure 135/94 Pulse Ox 98 Oxygen Flow Rate 1 Oxygen Delivery Method Room Air Height 5 ft 10 in Weight 108.771 kg
== END 2018-10-16 15:05 | disposition home or self-care (01) | DRG 460 ==
LOC: OPS 05:37 → MED/SURG 17:09
PROVIDERS: ADMIT Neurological Surgery; ATTEND Neurological Surgery

== ENCOUNTER 2019-03-12 05:28 | Observation (INO) ==
[2019-03-12] MEDS ORDERED: Lactated Ringers 1,000 ML PRIMARY IV ONE ×3 (05:44→08:50)
[2019-03-12] MEDS ORDERED: ceFAZolin Inj 2gm (Premix) 2 GM/50 ML BAG IV ONE ×2 (05:44→06:00)
[2019-03-12] MEDS ORDERED: Vancomycin Inj 1gm vial ONE (05:44)
[2019-03-12] MEDS ORDERED: LIDOCAINE W/ SODIUM BICARB 0.5 ML SYR ONE (05:45)
[2019-03-12] MEDS ORDERED: Sodium Chloride 0.9% 0 ML ONE (05:45)
[2019-03-12] MEDS ORDERED: Vancomycin-PHA to Dose IV PRN (06:00)
[2019-03-12] MEDS ORDERED: LIDOCAINE W/ SODIUM BICARB 0.5 ML SYR SUBD ONE (06:00)
[2019-03-12] MEDS ORDERED: Nasal Sanitizer POPSWAB ampule 3 AMP (Nozin) PREOP DOSE ENOS SCH (06:00)
[2019-03-12 06:05] LABS: BILIRUBIN,URINE SMALL (NEG); CLARITY,URINE CLEAR (CLEAR); COLOR,URINE YELLOW (Y); GLUCOSE, URINE (UA) NEGATIVE (NEG); OCCULT BLOOD,URINE NEGATIVE (NEG); PH,URINE 5.5 (5.0-8.5); PROTEIN,URINE NEGATIVE (NEG)
[2019-03-12 06:07] LABS: URINE SAMPLE TYPE CLEAN CATCH URINE; URINE SPECIFIC GRAVITY - MAN 1.022
[2019-03-12] MEDS ORDERED: LIDOCAINE W/ SODIUM BICARB 0.5 ML SYR SUBD PRN (06:42)
[2019-03-12] MEDS ORDERED: ONDANSETRON 4 MG/2 ML VIAL IVP PRN (06:47)
[2019-03-12] MEDS ORDERED: ATROPINE SULFATE 0.4 MG/1 ML VIAL IVP PRN (06:47)
[2019-03-12] MEDS ORDERED: IPRATROPIUM/ALBUTEROL SULFATE 3 ML NEB NEB ONE ×2 (06:50→06:51)
[2019-03-12] MEDS ORDERED: SCOPOLAMINE HYDROBROMIDE 1.5 MG - 1 EACH PATCH TRANSDERM ONE ×2 (06:51→07:27)
--- NOTE | 2019-03-12 06:53 | CRNA.PROGR ---
Anesthesia Time - Procedure/Recovery Time Start Date: 03/12/19 End Date: 03/12/19 Anesthesia : Time In: 07:35 Anesthesia : Time Out: 09:43 Anesthesia : Total Time: 128 - Total Anesthesia Time Total Anesthesia Time (minutes): 128 - Other Weight: 95.708 kg Height: 5 ft 10 in Body Mass Index (BMI): 30.2 Physical Status: P2 Anesthesia Type: General Anesthesia : ET (chronic pain, chronic opiate therapy, GERD)
[2019-03-12] MEDS ORDERED: fentaNYL Inj 250 MCG/5 ML VIAL ONE ×2 (07:00→08:48)
[2019-03-12] MEDS ORDERED: Lactated Ringers 1,000 ML PRIMARY IV SCH (07:00)
[2019-03-12] MEDS ORDERED: PROPOFOL 10 MG/1 ML (200 MG/20 ML) VIAL IV ONE (07:00)
[2019-03-12] MEDS ORDERED: KETAMINE 100 MG/1 ML - 5 ML ONE (07:00)
[2019-03-12] MEDS ORDERED: MIDAZOLAM 5 MG/1 ML ONE (07:00)
[2019-03-12] MEDS ORDERED: Sodium Chloride 0.9% vial 10 ML ONE ×2 (07:10→07:11)
[2019-03-12] MEDS ORDERED: BUPIVACAINE 0.25% W/ EPI - 10 ML VIAL ONE ×2 (07:11→08:22)
[2019-03-12] MEDS ORDERED: BACITRACIN 50,000 UNIT VIAL IRRIG ONE (07:11)
[2019-03-12] MEDS ORDERED: ROCURONIUM 10 MG/1 ML - 5 ML VIAL IVP ONE (07:16)
[2019-03-12] MEDS ORDERED: DEXAMETHASONE PF 10 MG/1 ML VIAL ONE (07:28)
[2019-03-12] MEDS ORDERED: KETOROLAC 30 MG/1 ML VIAL ONE (09:21)
[2019-03-12] MEDS ORDERED: HYDROmorphone 2 MG/1 ML ONE (09:56)
[2019-03-12] MEDS: HYDROmorphone 2 MG/1 ML IVP PRN ×2 (09:57→10:09)
[2019-03-12] MEDS ORDERED: Vancomycin-PHA to Dose IV SCH (10:34)
[2019-03-12] MEDS ORDERED: Prochlorperazine Edisylate Inj 10mg/2ml vial IVP PRN (10:34)
[2019-03-12] MEDS ORDERED: tiZANidine Tab 4 MG TAB PO PRN (10:34)
[2019-03-12] MEDS ORDERED: MAGNESIUM 400 MG/5 ML - 30 ML (MILK OF MAGNESIA) PO PRN (10:34)
[2019-03-12] MEDS ORDERED: Ondansetron ODT Tab 4 MG TAB PO PRN (10:34)
[2019-03-12] MEDS ORDERED: DOCUSATE 100 MG CAPSULE PO PRN (10:34)
[2019-03-12] MEDS ORDERED: MAGNESIUM CITRATE 296 ML SOLUTION PO PRN (10:34)
[2019-03-12] MEDS ORDERED: PROMETHAZINE 25 MG/1 ML VIAL IM PRN (10:34)
[2019-03-12] MEDS ORDERED: Fleet Enema 133ml RECTAL PRN (10:34)
[2019-03-12] MEDS ORDERED: MORPHINE SULFATE 4 MG/1 ML IVP PRN (10:34)
[2019-03-12] MEDS ORDERED: BISACODYL 5 MG TABLET PO PRN (10:34)
[2019-03-12] MEDS: OMEPRAZOLE 40 MG CAPSULE PO SCH (11:59)
[2019-03-12] MEDS: oxyCODONE ER Tab 20 MG TAB PO SCH ×2 (11:59→22:45)
--- NOTE | 2019-03-12 12:56 | CONSULT ---
Consult Note - Consult Reason for Consult: PostOp Consulation : Neuro Primary Care Provider: Kerry Norman HPI - History of Present Illness History of Present Illness: Is a very nice 33-year-old gentleman who is here under the care of Dr. Naik status post SI joint surgery .hospitalist team was consulted for heartburn GERD patient is on omeprazole patient is doing fine at present time denies chest pain nausea vomiting Past Medical History Medical History: GERD Tobacco Use: Former Smoker In the Past 12 Months, Have Used or Abuse Any of the Following Substance: Marijuana Review of Systems - Review of Systems All Systems: Reviewed & No Additional Complaints Except as Stated - Cardiovascular Cardiovascular: DENIES: Negative System Review, Chest Pain, Edema, Syncope, Palpitations, Orthopnea, Paroxysmal Nocturnal Dyspnea, Other, See HPI - Gastrointestinal Gastrointestinal / Abdominal: DENIES: Negative System Review, Nausea, Vomiting, Diarrhea, Constipation, Abdominal Pain, Bloody Stool, Poor Appetite, Heartburn, Regurgitation, Bloating, Lactose Intolerance, Melena, Bright Red Blood per Rectum, Other, See HPI Medication / Allergies Home Medications: Home Medications Medication Instructions Recorded Confirmed cholecalciferol (vitamin D3) 5,000 5,000 unit PO QDAY 08/09/18 03/11/19 unit capsule multivitamin,[id number] 1 tab PO QDAY 08/09/18 03/11/19 tablet omeprazole 40 mg capsule,delayed 40 mg PO QDAY 08/09/18 03/11/19 release tizanidine 4 mg capsule 4 mg PO TID PRN 08/09/18 03/12/19 Calcium Citrate 200 mg PO DAILY 10/11/18 03/11/19 Cyanocobalamin (Vitamin B-12) 1,000 mcg PO DAILY 10/11/18 03/11/19 [Vitamin B-12] oxycodone ER 20 mg tablet,crush 20 mg PO Q12H #60 tab 12/20/18 03/11/19 resistant,extended release 12 hr Gabapentin [Neurontin] 300 mg PO TID 03/11/19 03/12/19 Allergies/Adverse Reactions: Allergies Allergy/AdvReac Type Severity Reaction Status Date / Time aspirin Allergy Severe Anaphylaxis Verified 03/11/19 11:20 Exam - Vitals Vital Signs: Vital Signs Temperature 98.2 F Temperature Source Temporal Artery Scan Pulse Rate [Pulse Oximeter 73 Right] Pulse Rate 74 Respiratory Rate 16 Blood Pressure [Right Arm] 108/61 Blood Pressure 114/75 Pulse Ox 96 Oxygen Flow Rate 2 Oxygen Delivery Method Nasal Cannula Height 5 ft 10 in Weight 211 lb - General General Appearance: No Acute Distress, Cooperative - GI/Abdominal GI/Abdominal Exam: POSITIVE: Normal Bowel Sounds, Non Tender, Non Distended, Soft, No Masses, No Hepatomegaly, No Splenomegaly, No Organomegaly Assessment and Plan - Patient Problems (1) Chronic back pain Current Visit: No Status: Chronic Comment: Status point supposed SI joint surgery by Dr. Naik defer PT OT pain management to him Code(s): M54.9 - Dorsalgia, unspecified; G89.29 - Other chronic pain Qualifiers: (2) GERD (gastroesophageal reflux disease) Current Visit: No Status: Chronic Comment: Resume protonix or omeprazole patient has no complaints at this time Code(s): K21.9 - Gastro-esophageal reflux disease without esophagitis
--- NOTE | 2019-03-12 13:25 | CRNA.PROGR ---
Post Anesthesia Phase II - Post Anesthesia Phase II Patient Stable and Discharged To: Phase II Temperature: 98.2 F Pulse Rate: 74 Respiratory Rate: 16 Blood Pressure: 114/75 Pulse Ox: 96 Total Danisha Score at Discharge: 9 Post Anesthesia Discharge Criteria Met: Yes
[2019-03-12] MEDS: oxyCODONE/APAP 10/325 Tab 1 EACH TAB PO PRN ×3 (14:28→23:47)
[2019-03-12] MEDS: GABAPENTIN 300 MG CAPSULE PO SCH ×2 (16:23→21:23)
[2019-03-12] MEDS: ceFAZolin Inj 1 GM in Sodium Chloride 0.9% 100 ML IV SCH ×2 (16:24→23:47)
--- NOTE | 2019-03-12 20:45 | GEN.OPNOTE ---
Operative Note Surgery Date: 03/12/19 Preoperative Diagnosis: Chronic left sacroiliac joint pain. Postoperative Diagnosis: Chronic left sacroiliac joint pain. Procedure: 1.) Arthrodesis, left sacroiliac joint, minimally invasively with image guidance with placement of three SI Bone triangular titanium transfixing devices across the left SI jonit. (CPT code: 69003). 2.) Use of babbel DBM Putty to fill the titanium triagular implants. (CPT code: 84789). 3.) Use of intra-operative fluoroscopy for planning trajectories of the tranfixing cages and for confirmation of the final position of the cages. 4.) Use of neuromonitoring including EMG's and SSEP's. Surgeon: Winston Naik MD Assistant Plant Control Operator: GALEN Serna Anesthesia Provider: Marilee Milan CRNA Anesthesia Type: General Estimated Blood Loss (mL): 35 Fluids: See anesthesia record Pathology: None Indications: Mr. Hilliard is a 33 year old gentleman, patient of mine who underwent a suboccipital craniectomy in 2012 and an L4-S1 fusion in 2013. He underwent a right SI joint fusion in [place] by another surgeon in 2014. He had a lumbar kyphoplasty performed by Dr. Youssef in 2015 for an L3 compression fracture. Most recently, Mr. Hilliard underwent a L4-S1 hardware removal and L2-4 transforaminal lumbar interbody fusion and posterolateral instrumented fusion performed on 10/14/18. Although he has done very well following that surgery, he continues to have chronic left SI joint pain. He had concordant reproduction of his left SI joint pain on provocative maneuvers. He failed to get significant or durable relief of his symptoms with physical therapy. He underwent a positive left SI joint diagnostic block. He wished to undergo fusion of his left SI joint. He presents for that procedure today. Mr. Hilliard is experiencing low back and left hip pain. He underwent a positive left SI injection on 01/31/19. He presents today for his surgical history and physical. He is scheduled for a left SI joint fusion on 03/12/19. Findings: None Complications: None Operative Summary: Mr. Hilliard was met in the preoperative area. His surgical history and physical in his surgical chart was reviewed. The planned procedure to be performed was confirmed with Mr. Hilliard and we were in agreement on the procedure to be performed and this matched what was written on his consent form. Any questions that Mr. Hilliard or his had were answered before he was taken back to the operating room suite. Mr. Hilliard was brought back to the operating room suite and put under general anesthesia and intubated by the anesthesia staff. He had a Singh catheter placed in his bladder for the procedure. He had pneumatic compression hose placed on his lower legs bilaterally. Mr. Hilliard was carefully rolled over onto the Johny surgical table with his arms gently positioned upwards with her shoulders abducted less than 90. His arms were well-padded with foam padding on top of the padding of the surgical armboards. The region of his chest and axilla was checked bilaterally to make sure that there were no pressure points over the region of the brachial plexus bilaterally. His nipples were checked be below the chest pad of the Johny table no pressure points. All bony prominences were well padded. His Singh catheter was checked be free from kinks. His pneumatic compression hose was attached and pneumatic compression device. The C-arm fluoroscopy unit was used to help localize the sacral alar line over the skin over the lateral aspect of the buttocks as well as a mid sacral line over the same. Based on the intersection of these lines, and intended skin incision was marked along the mid sacral line starting 1 cm dorsal to the intersection of this line with the sacral alar line and extending 3 mm dorsally and laterally from that point with a skin marker. Several crosshatches were made along the intended skin incision with a skin marker as well. Mr. Hilliard was prepped and draped in the usual and standard fashion. He was given 2 g of Ancef IV and vancomycin IV as dosed per pharmacy. He was prepped and draped in the usual and standard fashion. A standard surgical timeout was performed identifying the correct patient, the correct procedure, and the correct equipment being available for the procedure. The intended skin incision was injected subcutaneously with quarter percent Marcaine with 1 in 200,000 epinephrine. 10 mL of local anesthetic was used. The skin was incised with a 10 blade scalpel and all dermal and superficial bleeding points controlled bipolar cautery. The first sharp pin was then advanced to the lateral aspect of the ilium and adjusted under multiple spot fluoroscopy until the pin was on the ilium just caudal to the sacral alar line and just posterior to the anterior aspect of the sacrum. The pin was then carefully advanced into the ilium with a mallet. The pin guide was then placed over this first pin and the second pin was advanced through the pin guide and also adjusted under multiple spot fluoroscopy until this pin was placed on the lateral aspect of the ilium caudal and posterior to the first pin. This pin was gently advanced into the lateral aspect of the ilium with a mallet. The pin guide was then placed over the second pin and the third pin was then placed under multiple spot fluoroscopy until it was in its desired position for the placement of the third cage. This pin was then gently advanced into the lateral aspect of the ilium with the mallet. A pelvic inlet view was then obtained demonstrating the correct trajectories of the pins and this plane. Imaging was then changed to a pelvic outlet view. The soft tissue dissector was placed over the first pin and the soft tissue was dissected around the pin using this dissector. The soft tissue protector with the insert was then placed over the pin down to the lateral aspect of the ilium. The extension of the pin beyond the center insert was measured to appropriately size the first SI Bone 3-D triangular titanium cage. The hand-held drill was then used to drill just across the sacroiliac joint over the pin which was performed under multiple spot fluoroscopy. The broach was then placed over the pin and the broach was advanced until the tines of the broach just passed through the SI joint. The first triangular titanium SI bone cage measuring 16 mm in length was filled with My DBM Putty and advanced across the sacroiliac joint over the pin with the guide and mallet. The cage obtained good purchase across the sacroiliac joint. Final pelvic outlet and pelvic inlet views were obtained of the final position of the first cage. The procedure was then performed in the same exact manner as described in the above manner for the preparation and placement of the second and third SI bone triangular titanium cages with a 50 mm cage filled with [place] DBM putty being selected for the second cage and a 45 mm cage filled with My DBM putty being selected for the third cage. All cages obtained good purchase across the sacroiliac joint. Final AP, lateral, pelvic inlet, and pelvic outlet views of the final position of the cages placed was performed. The surgical site was copiously irrigated with bacitracin irrigation. The closure portion of the procedure was begun. The deep subcutaneous tissue was re-approximated with 0 Vicryl suture in an interrupted fashion. The more sup erficial subcutaneous tissue was re-approximated with 2-0 Vicryl suture in an interrupted fashion. The dermis and superficial subcutaneous tissue was re- approximated with 3-0 Vicryl suture in an inverted interrupted fashion. The Ioban drape was pulled back from the skin edges and the final layer of skin closure was performed surgical stainless steel rogelio. All surgical drapes removed from Mr. Hilliard. He was then carefully rolled over onto the PACU stretcher. He was awoken and a spin by the anesthesia staff. He was taken to the recovery room in stable condition. All surgical counts were reported as correct by the scrub and circulating personnel. A physician's visitor service assistant, Mrs. Jeniffer Martinez PA-C, assisted with the procedure including the exposure and closure portions of the procedure. She also assisted guiding the instruments over the pin for their appropriate placement.
--- NOTE | 2019-03-12 21:15 | NEURO.PROG ---
Subjective Post Op Day: 0 Pain Management: PO Singh Catheter: No Diet: Regular Ambulating: Yes Additional Details: Awake and alert in room. No complaints, doing well. Already ambulating in halls and going up stairs, partial weight bearing with a walker. Good movement of all extremities. Continue post-operative antibiotics. Continue post-operative pain control. Continue to mobilize. Objective : Data - Vital Signs Vital Signs and I&O: Vital Signs - Last Taken Temperature 97.3 F 03/12/19 18:33 Pulse Rate 48 L 03/12/19 19:09 Respiratory Rate 20 03/12/19 18:33 Blood Pressure 106/59 03/12/19 19:09 Pulse Ox 92 03/12/19 19:09 Intake and Output (24hr x 4 totals) 03/10/19 03/11/19 03/12/19 03/13/19 05:59 05:59 05:59 05:59 Intake Total 2650 / 2650 Output Total 510 / 510 Balance 2140 / 2140
[2019-03-12 23:17] VITALS: RESP 18
[2019-03-13 04:53] LABS: BASOPHILS # (AUTO) 0 10*3/UL; BASOPHILS % (AUTO) 0 % (0-1); EOSINOPHILS # (AUTO) 0 10*3/UL; EOSINOPHILS % (AUTO) 0 % (0-8); Hematocrit [HCT] 37.8 % (42.0-52.0); Hemoglobin [HGB] 12.5 g/dL (14.0-18.0); LYMPHOCYTES # (AUTO) 1.13 10*3/uL; MEAN CORPUSCULAR HEMOGLOBIN 29.6 PG (27-31); MEAN CORPUSCULAR HGB CONC 33.1 g/dL (33-37); MEAN CORPUSCULAR VOLUME 89.6 FL (80-90); MEAN PLATELET VOLUME 11.2 FL (7.4-12.2); MONOCYTES % (AUTO) 10.8 % (5-15); NEUTROPHILS # (AUTO) 4.63 10*3/UL; NEUTROPHILS % (AUTO) 71.5 % (50-80); RED BLOOD COUNT 4.22 10^6/uL (4.70-6.10)
[2019-03-13] MEDS: oxyCODONE/APAP 10/325 Tab 1 EACH TAB PO PRN ×2 (04:59→08:50)
[2019-03-13 05:00] LABS: PLATELET MORPHOLOGY COMMENT NORMAL MORPHOLOGY (NORM); RBC MORPHOLOGY COMMENT NORMAL MORPHOLOGY (NORM); WBC MORPHOLOGY COMMENT NORMAL MORPHOLOGY (NORM)
[2019-03-13 05:16] LABS: BLOOD UREA NITROGEN 10 mg/dL (7-22); BUN/CREATININE RATIO 14.28 (6-20)
--- NOTE | 2019-03-13 06:56 | NEURO.PROG ---
Subjective Post Op Day: 1 Pain Management: PO Singh Catheter: No Diet: Regular Ambulating: Yes Additional Details: Dr Naik was in this morning to round on Mr Hilliard. He was up walking in the [place] using a walker to maintain partial weight bearing and feels ready to go home. He was asymptomatic with bradycardia in the 40s and 50s and thinks he has been told he has had that before. The Prevena dressing is intact and functioning over his left SI fusion incision. He was given post op instructions including activity and incision care. He was given instructions follow up with his primary provider in [place] in [address] Naik in the [facility] in 1 month or in 2 weeks if he has been unable to follow up with his primary provider in 2 weeks for skin staple removal. Plan: We will have an ECG done this morning Plan for discharge home following clearance from hospitalist regarding his bradycardia. Objective : Data - Labs CBC and BMP: 03/13/19 03:45 03/13/19 03:45 - Vital Signs Vital Signs and I&O: Vital Signs - Last Taken Temperature 97.4 F 03/13/19 03:36 Pulse Rate 49 L 03/13/19 03:36 Respiratory Rate 18 03/13/19 03:36 Blood Pressure 110/67 03/13/19 03:36 Pulse Ox 96 03/13/19 03:36 Intake and Output (24hr x 4 totals) 03/11/19 03/12/19 03/13/19 03/14/19 05:59 05:59 05:59 05:59 Intake Total 5563 / 5563 Output Total 1285 / 1285 Balance 4278 / 4278
[2019-03-13 07:13] VITALS: BP 117/69; TEMP 98.1; O2SAT 99
--- NOTE | 2019-03-13 07:46 | EKG ---
[address] [address] Measurements Intervals [place] Rate: 36 P: 52 PA: 138 QRS: 71 QRSD: 111 T: 63 QT: 457 QTc: 367 Interpretive Statements SINUS BRADYCARDIA MODERATE INTRAVENTRICULAR CONDUCTION DELAY [110+ ms QRS DURATION] No previous ECG available for comparison Electronically Signed On 03-13-19 10:24:51 MDT by Felipe Sebastian [email or web address]
--- NOTE | 2019-03-13 08:53 | PDOC(PROG) ---
Date of Service: 03/13/19 Time of Service: 08:50 Interval History: Subjective Patient was laying in bed, complaining from pain in his back but otherwise denying other symptoms. No chest pain, no shortness of breath, no lightheadedness or dizziness. Objective : Data - Labs CBC and BMP: 03/13/19 03:45 03/13/19 03:45 Objective : Exam - General General Appearance: No Acute Distress, Cooperative - Head Head Exam: Normal Inspection - Eye Eye Exam: Normal Appearance - ENT ENT Exam: Normal Exam - Neck Neck Exam: Normal Inspection - Respiratory Respiratory Exam: Clear to Auscultation - Bilaterally - Cardiovascular Cardiovascular Exam: Bradycardia - GI/Abdominal GI/Abdominal Exam: Normal Bowel Sounds, Non Tender, Non Distended, Soft, No Organomegaly - Rectal Rectal Exam: Deferred - External Exam: Deferred - Extremities Extremities Exam: Normal Inspection - Neurological Neurological Exam: Alert, Oriented x 3, CN II-XII Intact, Speech Intact / Clear, Moves All Extremities Equally - Psychiatric Psychiatric Exam: Normal Affect Assessment and Plan - Patient Problems (1) Chronic back pain Status: Chronic Comment: Management per Dr. Naik. Code(s): M54.9 - Dorsalgia, unspecified; G89.29 - Other chronic pain Qualifiers: (2) GERD (gastroesophageal reflux disease) Status: Chronic Comment: Same medication. Code(s): K21.9 - Gastro-esophageal reflux disease without esophagitis (3) Bradycardia Status: Acute Comment: EKG showed sinus bradycardia, patient is asymptomatic. I Did speak with Dr. Giang the curator of manuscripts in [place] he agrees no need for further investigation. Since he asymptomatic from it I think he can be discharged home as the plan was today. Code(s): R00.1 - Bradycardia, unspecified
[2019-03-13] MEDS ORDERED: CYANOCOBALAMIN (VITAMIN B-12) 1,000 MCG TABLET.ER PO SCH (09:00)
[2019-03-13] MEDS ORDERED: Multivitamin Tab 1 TAB PO SCH (09:00)
[2019-03-13] MEDS: OMEPRAZOLE 40 MG CAPSULE PO SCH (09:04)
[2019-03-13] MEDS: oxyCODONE ER Tab 20 MG TAB PO SCH (10:15)
[2019-03-13] MEDS: GABAPENTIN 300 MG CAPSULE PO SCH (10:16)
--- NOTE | 2019-03-13 10:24 | PTI REPORT ---
Thank you for the referral of Mateo Hilliard. He was seen on 03/12/19 for an inpatient evaluation status post left SI joint fusion. SUBJECTIVE: The patient is a 33-year-old male who underwent a left SI joint fusion earlier today. The patient states he was told by his surgeon he is supposed to be non weight-bearing on his left side for up to six weeks and he states that he has brought his walker in. The patient reports that he previously had a low back fusion in October of 2018 and has been doing pretty well since then but was having difficulties with lifting his left lower extremity. The patient also reports previous history of another low back fusion a few years ago. The patient states that he lives in [place] with his . He states that they live in an apartment with six stairs to get into the apartment. The patient denies any recent falls. He was not using an assistive device prior to his surgery and reports that he was independent with ADLs. All other past medical history can be taken from the patient's medical chart. PAST MEDICAL HISTORY: Past medical history can be found in the patient's medical record. OBJECTIVE FINDINGS: General observations: The patient was alert and oriented to setting upon PT arrival. The patient was sitting edge of bed and he did have a gait belt in place and his walker in front of him. He stated that he would like to get up and walking and also would like to try the stairs this afternoon. Transfers: The patient was able to independently transfer from a seated to standing position. The patient transferred from stand to sitting edge of bed. Ambulation: The patient ambulated 100 feet to the stairwell with use of walker. He demonstrated primarily a non weight-bearing pattern on the left lower extremity but was educated that he can place his left foot down for his balance. He did fairly well with ambulatory activity. The patient ascended and descended 8 stairs with use of walker and minimal verbal cueing for walker placement. The patient ambulated an additional 100 feet back to his room with the walker. ASSESSMENT: The patient has good rehab potential. Problem List: Patient is status post left SI joint fusion Short-Term Goals: To be met by discharge from inpatient: Patient will be able to transfer from bed to stand safely and independently. Patient will be able to ambulate at least 150 feet safely and independently with walker and appropriate weight-bearing status. Patient will be able to ascend and descend at least 6 stairs with walker and correct weight-bearing independently. Long-Term Goals: To be met following discharge from inpatient: Patient may be seen by outpatient physical therapy if deemed necessary by his surgeon. TREATMENT PLAN: Patient will be seen one more time in the morning to review ambulatory activity and stairs if needed. INITIAL TREATMENT: Treatment today consisted of the initial evaluation followed by one unit of functional activity. Following treatment the patient was left sitting edge of bed. The patient's nurse was notified that he was back in his room so that she could hook his IV back up. GI
--- NOTE | 2019-03-13 10:50 | OTI REPORT ---
Thank you for the referral of Mateo Hilliard. He was seen on 03/12/19 for an occupational therapy inpatient evaluation status post left SI joint fusion. SUBJECTIVE: The patient is a 33-year-old male from [place], [place] who lives with his in an apartment with six stairs to the entrance of their home. The patient does have a significant history of surgeries in the past to include lumbar surgeries. The patient currently reports a pain level of 6/10 on the verbal analog scale (0=no pain, 10=worst pain); however, he would like to get up and go for a walk. The patient was aware of his partial weight-bearing precautions on the left side as he also had a right SI joint fusion in the past. The patient is currently on disability due to his surgeries. He reports that he has had 13 surgeries since 2012 with several spinal surgeries, a abdifatah in his left leg, and weight loss surgeries. The patient does report that he has a shower chair at home as well as a toilet riser. He also has a sock aide at home and a long handled shoe horn. The patient's is able to provide assistance at home as needed upon discharge. PAST MEDICAL HISTORY: Past medical history can be found in the patient's medical record. OBJECTIVE FINDINGS: Range of motion/Strength: The patient demonstrated functional range of motion within normal limits for the shoulder, elbow, hand, and wrist with strength of 4+/5 bilaterally in the shoulders. The patient demonstrates strength of 5/5 in the elbows, hands, and wrists. Bed mobility: The patient demonstrated the ability to move from supine in bed to sitting edge of bed independently. Transfers: The patient completed a functional transfer from edge of bed independently with use of walker and gait belt in place while following partial weight-bearing precautions on the left side. Activities of daily living: The patient was already dressed at the time of evaluation and prefers to perform additional dressing tomorrow morning. The patient required max assist to don his slippers. The patient was issued a bag mender and a long handled bath sponge for home use. Ambulation: The patient demonstrated the ability to ambulate x100 feet with partial weight-bearing precautions with use of the walker and gait belt in place with no difficulty. The patient did report some fatigue in his arms upon getting back to the room; however, was able to do this without any difficulty. ASSESSMENT: The patient has good rehab potential. Problem List: Decreased ability to complete lower extremity dressing Occupational Therapy Goals: To be met by discharge from inpatient: Patient will demonstrate the ability to complete lower extremity dressing tasks with modified independence with adaptive equipment as needed. Patient will continue to complete all functional transfers independently with contact guard assist for safety while following post op precautions. TREATMENT PLAN: Patient will be seen B.I.D during the week and one time per day over the weekend as an inpatient to address the above goals and objectives. INITIAL TREATMENT: Treatment today consisted of the initial evaluation only. The patient reports he would like to perform dressing tomorrow morning. Following treatment the patient was left sitting edge of bed with nursing. GI
--- NOTE | 2019-03-13 18:38 | DCSUMMARY ---
Hospitalization Summary Admit Date: 03/12/2019 Discharge Date: 03/13/19 Hospital Course: Discharge diagnoses 1. Status post the left SI joint surgery, for details see Dr. Naik note. 2. Sinus bradycardia asymptomatic 3. History of GERD Hospital course This is a 32 male with medical history significant for history of GERD and history of back pain who came in to have left SI joint surgery and was done by Dr. Naik please see his note. Hospitalist service were consulted for management of medical issues. Patient did have GERD. Was also noted that he had bradycardia. I saw him the next day after surgery his main complaint was pain in his back. No dizziness, no chest pain, no shortness of breath. I did speak with the linen sorter in [place] did not feel that the patient needs further intervention. he did walk off the wall and was doing fine and he was discharged home. He will follow-up with Dr. Naik. Discharge instructions Diet regular activity activity as tolerated Medications Current Medication(s) Medication Instructions Recorded Confirmed Type cholecalciferol (vitamin D3) 5,000 5,000 unit PO QDAY 08/09/18 03/11/19 History unit capsule multivitamin,bd-[id number] 1 tab PO QDAY 08/09/18 03/11/19 History tablet omeprazole 40 mg capsule,delayed 40 mg PO QDAY 08/09/18 03/11/19 History release tizanidine 4 mg capsule 4 mg PO TID PRN 08/09/18 03/12/19 History Calcium Citrate 200 mg PO DAILY 10/11/18 03/11/19 History Cyanocobalamin (Vitamin B-12) 1,000 mcg PO DAILY 10/11/18 03/11/19 History [Vitamin B-12] Gabapentin [Neurontin] 300 mg PO TID 03/11/19 03/12/19 History oxyCODONE IR Tab [OxyIR Tab] 15 mg PO Q4H PRN #90 tab 03/13/19 Rx oxycodone ER 20 mg tablet,crush 20 mg PO Q12H #60 tab 03/13/19 Rx resistant,extended release 12 hr Follow-up with Dr. Naik as scheduled Condition at discharge was stable for discharge Exam - Vitals Vital Signs: Vital Signs Temperature 98.1 F Temperature Source Temporal Artery Scan Pulse Rate [Pulse Oximeter 39 Right] Pulse Rate 74 Respiratory Rate 18 Blood Pressure [Left Arm] 117/69 Blood Pressure [Right Arm] 112/54 Blood Pressure 114/75 Pulse Ox 99 Oxygen Flow Rate 2 Oxygen Delivery Method Room Air Height 5 ft 10 in Weight 213 lb 8 oz Patient Problems - Patient Problem List (1) Chronic back pain Status: Chronic Code(s): M54.9 - Dorsalgia, unspecified; G89.29 - Other chronic pain Qualifiers: Category: Medical (2) GERD (gastroesophageal reflux disease) Status: Chronic Code(s): K21.9 - Gastro-esophageal reflux disease without esophagitis Category: Medical (3) Bradycardia Status: Acute Code(s): R00.1 - Bradycardia, unspecified Category: Medical
== END 2019-03-13 10:30 | disposition home or self-care (01) ==
LOC: OR 05:28 → MED/SURG 05:28
PROVIDERS: ADMIT Neurological Surgery; ATTEND Neurological Surgery